=== PATIENT | female | born 1970 | race Caucasian/White ===

== ENCOUNTER 2023-01-20 17:28 | Emergency (ER) | payer MEDICAID ==
[~2023-01-20] VITALS: Ht 160 cm; Wt 51.0 kg
[2023-01-20 18:20] VITALS: BP 150/86
[2023-01-20] MEDS ORDERED: IOHEXOL-350 100 ML BOTTLE ONE (18:32)
[2023-01-20 19:19] LABS: BASOPHILS % 0.6 % (0.0-2.0); EOSINOPHILS % 0.4 % (0.0-5.0); HEMATOCRIT. 43.3 % (36.0-48.0); HEMOGLOBIN. 14.5 g/dL (12.0-16.0); LYMPHOCYTES % 14.4 % (20.0-50.0); MEAN CORPUSCULAR HEMOGLOBIN 29.8 pg (28.0-32.0); MEAN CORPUSCULAR VOLUME 89.1 fL (81.0-99.0); MONOCYTES % 3.4 % (2.0-8.0); NEUTROPHILS % 81.2 % (40.0-76.0); PLATELET 296 x1000/uL (130-400); RED BLOOD CELL COUNT 4.86 mill/uL (4.2-5.4); RED CELL DISTRIBUTION WIDTH 13.8 % (11.6-14.6)
[2023-01-20 19:24] LABS: PROTHROMBIN TIME 10.4 sec (9.6-11.0)
[2023-01-20 19:25] LABS: CHLORIDE 105 mEq/L (98-107)
[2023-01-20 19:37] LABS: ETHANOL BLOOD < 10 mg/dL
[2023-01-20 19:39] LABS: CREATINE KINASE 143 IU/L (26-192)
[2023-01-20] MEDS ORDERED: ASPIRIN 81MG TABLET PO ONE (20:45)
== END 2023-01-20 21:05 | disposition left against medical advice (07) ==
LOC: EDSEX 17:28 → ER 17:28 → CANBEDREQ 01-21 02:48
DX: I63.9 Cerebral infarction, unspecified (principal); G93.49 Other encephalopathy; R94.39 Abnormal result of other cardiovascular function study; E05.90 Thyrotoxicosis, unspecified without thyrotoxic crisis or storm
CPT/HCPCS: 36415; 70450; 70496; 70498; 71045; 80053; 80320; 82550; 84484; 85025; 85610; 93005; 99291; Q9967; G0480